=== PATIENT | female | born 1995 | race African-American/Black ===

== ENCOUNTER 2017-09-17 20:01 | Inpatient (IN) ==
[2017-09-17] MEDS ORDERED: MEPERIDINE 50 MG/1 ML VIAL IV PRN (20:44)
[2017-09-17] MEDS ORDERED: ONDANSETRON 4 MG/2 ML VIAL IV PRN (20:44)
[2017-09-17] MEDS: LACTATED RINGERS 1,000 ML IV SCH (20:50)
[2017-09-17 21:38] LABS: Basophils % 0.2 % (0.0-0.8); Eosinophils # 0.1 10*3/uL (0.0-0.87); Eosinophils % 0.5 % (0.00-10.9); Hematocrit 34.9 VOL% (35.7-47.0); Hemoglobin 11.5 GM/DL (12.0-16.0); Immature Granulocytes % 0.5 %; Immature Granulocytes Absolute 0.05 #; Lymphocytes # 2.7 10*3/uL (1.4-4.0); Lymphocytes % 24.1 % (21.3-54.2); Mean Corpuscular Hemoglobin 29 PG (27-34); Mean Corpuscular Volume 87.3 FL (87-102); Mean Platelet Volume 11.9 FL (9.6-12.0); Monocytes # 0.7 10*3/uL (0.11-0.8); Monocytes % 6.2 % (1.7-12.7); Neutrophils # 7.6 10*3/uL (1.4-7.4); Neutrophils % 68.5 % (38.7-73.9); Platelet Count 209 T/CUMM (130-400); Red Cell Distribution Width 13.3 % (9.3-17.3); White Blood Count 11.1 T/CUMM (4-12)
[2017-09-17] MEDS ORDERED: DINOPROSTONE 10 MG VAG.INSERT VAG ONE (22:00)
[2017-09-17 22:06] LABS: Alanine Aminotransferase 77 U/L (13-56); Albumin 2.7 G/DL (3.4-5.0); Alkaline Phosphatase 117 U/L (45-117); Aspartate Amino Transferase 61 U/L (0-37); Bilirubin,Total < 0.39 MG/DL (0.2-1.0); Blood Urea Nitrogen 9 MG/DL (7-18); Calcium 8.8 MG/DL (8.5-10.1); Glucose 79 MG/DL (74-106); Osmolality,Calculated 276.4 MOS/KG (273-304); Potassium 3.4 MMOL/L (3.5-5.1); Sodium 140 MMOL/L (136-145); Total Protein 6.3 G/DL (6.4-8.3)
[2017-09-18] MEDS ORDERED: OXYTOCIN/LR 20 UNIT/1,000 ML BAG IV ONE ×3 (04:45→16:48)
[2017-09-18] MEDS ORDERED: OXYTOCIN/LR 20 UNIT/1,000 ML BAG IV SCH (05:00)
[2017-09-18] MEDS: LACTATED RINGERS 1,000 ML IV SCH (06:20)
[2017-09-18] MEDS ORDERED: LACTATED RINGERS 1,000 ML IV ONE (09:47)
[2017-09-18] MEDS ORDERED: FAMOTIDINE 20 MG/2 ML VIAL IV ONE (09:47)
[2017-09-18] MEDS ORDERED: CITRIC ACID/SODIUM CITRATE 30 ML UDCUP PO ONE (09:47)
[2017-09-18] MEDS ORDERED: hydrOXYzine HCL 25 MG/1 ML VIAL IM PRN (09:48)
[2017-09-18] MEDS ORDERED: diphenhydrAMINE 50 MG/1 ML VIAL IV PRN ×2 (09:48)
[2017-09-18] MEDS ORDERED: ePHEDrine 50 MG/ML AMP IV PRN (09:48)
[2017-09-18] MEDS ORDERED: fentaNYL 2 MCG/ROPIV 0.2% EPID 150 ML EPIDURAL SCH (10:00)
[2017-09-18 13:02] LABS: Apearance,Urine CLEAR (Clear); Bilirubin,Urine Negative (Negative); Blood, Urine Negative (Negative); Glucose,Urine (UA) Negative (Negative); Ketones,Urine 80 mg/dL (Negative); Mucus,Urine Occasional /LPF (Occasional); Nitrite,Urine Negative (Negative); Protein,Urine Negative; RBC,Urine 1 /HPF (0-4); Squamous Epithelial Cell,Urine Occasional /HPF (0-10); Urine Color Yellow (Yellow); Urine Specific Gravity 1.011 (1.001-1.035); Urine Urobilinogen < 2.0 EU/DL (0.2-1.0); WBC,Urine 2 /HPF (0-6)
[2017-09-18] MEDS ORDERED: ACETAMINOPHEN 325 MG TABLET PO PRN (15:26)
[2017-09-18] MEDS ORDERED: BISACODYL 10 MG SUPP RECTAL PRN (15:26)
[2017-09-18] MEDS ORDERED: MAGNESIUM HYDROXIDE SUSP 30 ML UDCUP PO PRN (15:26)
[2017-09-18] MEDS ORDERED: LACTATED RINGERS 1,000 ML IV SCH (15:30)
[2017-09-18] MEDS: IBUPROFEN 800 MG TABLET PO PRN (15:34)
[2017-09-18] MEDS: DOCUSATE SODIUM 100 MG CAPSULE PO SCH (21:28)
[2017-09-19 06:15] LABS: Basophils % 0.2 % (0.0-0.8); Eosinophils # 0.1 10*3/uL (0.0-0.87); Eosinophils % 0.6 % (0.00-10.9); Hematocrit 27.8 VOL% (35.7-47.0); Immature Granulocytes % 0.6 %; Immature Granulocytes Absolute 0.08 #; Lymphocytes # 3.6 10*3/uL (1.4-4.0); Lymphocytes % 28.1 % (21.3-54.2); Mean Corpuscular HGB Conc 33.8 GM/DL (32-36); Mean Corpuscular Hemoglobin 29 PG (27-34); Mean Corpuscular Volume 85.5 FL (87-102); Mean Platelet Volume 12.2 FL (9.6-12.0); Monocytes # 0.8 10*3/uL (0.11-0.8); Monocytes % 5.8 % (1.7-12.7); NRBC # 0.02 10*3/uL; Neutrophils # 8.4 10*3/uL (1.4-7.4); Neutrophils % 64.7 % (38.7-73.9); Platelet Count 184 T/CUMM (130-400); Red Blood Count 3.25 MC/CUMM (3.8-5.5); Red Cell Distribution Width 13.2 % (9.3-17.3)
[2017-09-19 06:18] LABS: Hemoglobin 9.4 GM/DL (12.0-16.0)
[2017-09-19] MEDS: DOCUSATE SODIUM 100 MG CAPSULE PO SCH ×2 (09:23→22:12)
[2017-09-19] MEDS: MULTIVITAMIN (PRENATAL) TABLET PO SCH (09:23)
[2017-09-19] MEDS: IBUPROFEN 800 MG TABLET PO PRN (11:07)
[2017-09-19] MEDS: FERROUS SULFATE 325 MG TABLET PO SCH (22:12)
[2017-09-20] MEDS: IBUPROFEN 800 MG TABLET PO PRN (07:39)
[2017-09-20 07:42] VITALS: BP 141/84
[2017-09-20] MEDS: DOCUSATE SODIUM 100 MG CAPSULE PO SCH (08:11)
[2017-09-20] MEDS: MULTIVITAMIN (PRENATAL) TABLET PO SCH (08:11)
[2017-09-20] MEDS: FERROUS SULFATE 325 MG TABLET PO SCH (08:11)
== END 2017-09-20 12:20 | disposition home or self-care (01) | DRG 560 ==
LOC: N.LDOUT 20:01 → N.LD 20:06 → N.OB 09-18 14:18
PROVIDERS: ADMIT Nurse Practitioner; ATTEND Obstetrics & Gynecology

== ENCOUNTER 2021-06-15 17:30 | Inpatient (IN) ==
[2021-06-15] MEDS ORDERED: LACTATED RINGERS 1,000 ML IV ONE (18:29)
[2021-06-15] MEDS ORDERED: NIFEdipine 10 MG CAPSULE PO ONE ×2 (19:54→20:30)
[2021-06-15 20:38] LABS: Basophils % 0.1 % (0.0-0.8); Eosinophils % 0.3 % (0.00-10.9); Hematocrit 37.8 VOL% (35.7-47.0); Hemoglobin 12.4 GM/DL (12.0-16.0); Immature Granulocytes % 0.5 %; Immature Granulocytes Absolute 0.06 #; Lymphocytes # 2.3 10*3/uL (1.4-4.0); Lymphocytes % 19.5 % (21.3-54.2); Mean Corpuscular HGB Conc 32.8 GM/DL (32-36); Mean Corpuscular Volume 83.8 FL (87-102); Mean Platelet Volume 12.9 FL (9.6-12.0); Monocytes % 6.1 % (1.7-12.7); Neutrophils % 73.5 % (38.7-73.9); Platelet Count 149 T/CUMM (130-400); Red Blood Count 4.51 MC/CUMM (3.8-5.5); Red Cell Distribution Width 13.3 % (9.3-17.3); White Blood Count 11.9 T/CUMM (4-12)
[2021-06-15 20:55] LABS: Alanine Aminotransferase 40 U/L (13-56); Albumin 2.1 G/DL (3.4-5.0); Alkaline Phosphatase 158 U/L (45-117); Aspartate Amino Transferase 55 U/L (0-37); Bilirubin,Direct < 0.100 MG/DL (0.0-0.20); Blood Urea Nitrogen 7 MG/DL (7-18); Calcium 8.9 MG/DL (8.5-10.1); Carbon Dioxide 20 MMOL/L (21-32); Estimated Glom Filtration Rate 207 ML/MIN; Glucose 78 MG/DL (74-106); Osmolality,Calculated 273.5 MOS/KG (273-304); Potassium 3.8 MMOL/L (3.5-5.1); Sodium 139 MMOL/L (136-145); Total Protein 6.4 G/DL (6.4-8.2); Uric Acid 5.5 MG/DL (2.6-6.0)
[2021-06-15 21:37] LABS: INR 0.9; PT Patient Result 10.4 SECS (10.5-12.0); Partial Thromboplastin Time 32.4 SECS (23.8-32.1)
[2021-06-15] MEDS: ACETAMINOPHEN 325 MG TABLET PO PRN (23:00)
[2021-06-16 03:06] LABS: Protein/Creatinine Ratio,Urine 1.4 RATIO
[2021-06-16] MEDS ORDERED: LACTATED RINGERS 1,000 ML IV SCH (03:37)
[2021-06-16] MEDS: ACETAMINOPHEN 325 MG TABLET PO PRN ×3 (05:36→22:52)
[2021-06-16] MEDS: LABETALOL 200 MG TABLET PO SCH ×3 (06:52→21:14)
[2021-06-16] MEDS ORDERED: NIFEdipine 10 MG CAPSULE PO ONE (09:33)
[2021-06-16 21:54] LABS: Total Volume,Urine 2800 ML (400-2000)
[2021-06-16 22:07] LABS: Creatinine Clearance Urine 111.5 ML/MIN (70-115)
[2021-06-16 22:09] LABS: Total Protein 24 Hr Ur Result 3164 MG/24HR (0-149.1)
[2021-06-16] MEDS ORDERED: ONDANSETRON 4 MG/2 ML VIAL IV ONE (22:26)
[2021-06-16] MEDS ORDERED: MAGNESIUM SULF RIDER 4 GM/100 ML PREMIX IV ONE (22:42)
[2021-06-16] MEDS ORDERED: MAGNESIUM SULF DRIP 40 GM/1,000 ML ML IV SCH (23:00)
[2021-06-17] MEDS: ACETAMINOPHEN 325 MG TABLET PO PRN (04:33)
[2021-06-17] MEDS ORDERED: OXYTOCIN/LR 30 UNIT/1,000 ML BAG IV ONE (07:14)
[2021-06-17] MEDS ORDERED: OXYTOCIN 10 UNIT/ML VIAL IM ONE (07:14)
[2021-06-17] MEDS ORDERED: OXYTOCIN/LR 20 UNIT/1,000 ML BAG IV ONE ×2 (07:34→10:29)
[2021-06-17] MEDS ORDERED: CARBOPROST TROMETHAMINE 250 MCG/ML AMP IM ONE (07:34)
[2021-06-17] MEDS ORDERED: miSOPROStoL 200 MCG TABLET ONE (07:34)
[2021-06-17] MEDS ORDERED: SODIUM CHLORIDE 0.9% 0 ML IV ONE (07:34)
[2021-06-17] MEDS ORDERED: TRANEXAMIC ACID 1,000 MG/10 ML VIAL ONE (07:34)
[2021-06-17] MEDS ORDERED: METHYLERGONOVINE 0.2 MG/1 ML AMP ONE (07:34)
[2021-06-17] MEDS ORDERED: ceFAZolin 3,000 MG in SYRINGE 1 EACH IV ONE (08:00)
[2021-06-17] MEDS ORDERED: FAMOTIDINE 20 MG/2 ML VIAL IV ONE (08:00)
[2021-06-17] MEDS ORDERED: CITRIC ACID/SODIUM CITRATE 30 ML UDCUP PO ONE (08:00)
[2021-06-17] MEDS: LABETALOL 200 MG TABLET PO SCH (08:16)
[2021-06-17 08:47] LABS: Basophils % 0.1 % (0.0-0.8); Eosinophils # 0.1 10*3/uL (0.0-0.87); Eosinophils % 0.6 % (0.00-10.9); Hematocrit 38.4 VOL% (35.7-47.0); Hemoglobin 12.7 GM/DL (12.0-16.0); Immature Granulocytes % 0.4 %; Immature Granulocytes Absolute 0.04 #; Lymphocytes # 2.1 10*3/uL (1.4-4.0); Lymphocytes % 23.2 % (21.3-54.2); Mean Corpuscular HGB Conc 33.1 GM/DL (32-36); Mean Corpuscular Volume 84.2 FL (87-102); Mean Platelet Volume 12.3 FL (9.6-12.0); Monocytes % 5.4 % (1.7-12.7); Neutrophils % 70.3 % (38.7-73.9); Platelet Count 130 T/CUMM (130-400); Red Blood Count 4.56 MC/CUMM (3.8-5.5); Red Cell Distribution Width 13.7 % (9.3-17.3)
[2021-06-17] MEDS ORDERED: METOCLOPRAMIDE 10 MG/2 ML VIAL ONE (09:10)
[2021-06-17] MEDS ORDERED: ONDANSETRON 4 MG/2 ML VIAL ONE (09:10)
[2021-06-17] MEDS ORDERED: BUPIVACAINE SPINAL 0.75% 2 ML AMP SPINAL ONE (09:10)
[2021-06-17 09:16] LABS: INR 0.9; Partial Thromboplastin Time 34.5 SECS (23.8-32.1)
[2021-06-17] MEDS ORDERED: MIDAZOLAM 2 MG/2 ML VIAL ONE (09:22)
[2021-06-17] MEDS ORDERED: fentaNYL 250 MCG/5 ML VIAL ONE (09:56)
[2021-06-17] MEDS ORDERED: propofoL 200 MG/20 ML VIAL IV ONE (10:06)
[2021-06-17] MEDS ORDERED: ETOMIDATE 40 MG/20 ML VIAL IV ONE (10:06)
[2021-06-17] MEDS ORDERED: SUCCINYLCHOLINE 200 MG/10 ML VIAL ONE (10:06)
[2021-06-17 10:13] LABS: Cord Venous Blood HCO3 25.1 MMOL/L; Cord Venous Blood PO2 33.9 MMHG
[2021-06-17] MEDS ORDERED: LIDOCAINE 2% 5 ML VIAL ONE (10:16)
[2021-06-17] MEDS ORDERED: SUGAMMADEX 200 MG/2 ML VIAL IV ONE (10:20)
[2021-06-17] MEDS ORDERED: KETOROLAC 30 MG/1 ML VIAL ONE (10:20)
[2021-06-17 10:27] LABS: Bilirubin,Urine Negative (Negative); Blood, Urine Negative (Negative); Glucose,Urine (UA) Negative (Negative); Ketones,Urine 20 mg/dL (Negative); Mucus,Urine Occasional /LPF (Occasional); Nitrite,Urine Negative (Negative); Protein,Urine 100 MG/DL; RBC,Urine <1 /HPF (0-4); Squamous Epithelial Cell,Urine Occasional /HPF (0-10); Urine Appearance CLEAR (Clear); Urine Color Yellow (Yellow); Urine Specific Gravity 1.014 (1.001-1.035); Urine Urobilinogen < 2.0 EU/DL (<2.0)
[2021-06-17] MEDS ORDERED: ACETAMINOPHEN 325 MG TABLET PO PRN (10:29)
[2021-06-17] MEDS ORDERED: ONDANSETRON 4 MG/2 ML VIAL IV PRN (10:29)
[2021-06-17] MEDS ORDERED: RHO(D) IMMUNE GLOBULIN 300 MCG SYRINGE IM ONE (10:29)
[2021-06-17] MEDS ORDERED: LACTATED RINGERS 1,000 ML IV SCH (10:30)
[2021-06-17] MEDS ORDERED: FUROSEMIDE 20 MG/2 ML VIAL ONE (10:41)
[2021-06-17] MEDS ORDERED: SEVOFLURANE 1 UNIT/15 MINUTE INH ONE (10:41)
[2021-06-17] MEDS ORDERED: LABETALOL 20 MG/4 ML SYRINGE IV ONE (10:42)
[2021-06-17] MEDS: HYDROmorphone 2 MG/1 ML VIAL IV PRN ×2 (11:13→13:50)
[2021-06-17] MEDS: ACETAMINOPHEN 500 MG TABLET PO SCH ×2 (13:48→20:03)
[2021-06-17] MEDS: KETOROLAC 30 MG/1 ML VIAL IV SCH ×2 (16:46→22:16)
[2021-06-17] MEDS: FUROSEMIDE 40 MG/4 ML VIAL IV SCH ×2 (16:49→22:16)
[2021-06-17] MEDS: DOCUSATE SODIUM 100 MG CAPSULE PO SCH (21:55)
[2021-06-18] MEDS: ACETAMINOPHEN 500 MG TABLET PO SCH (01:58)
[2021-06-18] MEDS: KETOROLAC 30 MG/1 ML VIAL IV SCH (04:21)
[2021-06-18] MEDS: DOCUSATE SODIUM 100 MG CAPSULE PO SCH ×2 (08:12→20:29)
[2021-06-18] MEDS: MULTIVITAMIN (PRENATAL) TABLET PO SCH (08:12)
[2021-06-18 09:07] LABS: Basophils % 0.3 % (0.0-0.8); Eosinophils # 0.1 10*3/uL (0.0-0.87); Eosinophils % 1.1 % (0.00-10.9); Hematocrit 28.3 VOL% (35.7-47.0); Hemoglobin 9.2 GM/DL (12.0-16.0); Immature Granulocytes % 0.3 %; Immature Granulocytes Absolute 0.03 #; Lymphocytes # 2.5 10*3/uL (1.4-4.0); Lymphocytes % 25.6 % (21.3-54.2); Mean Corpuscular HGB Conc 32.5 GM/DL (32-36); Mean Corpuscular Volume 85.2 FL (87-102); Monocytes % 6.2 % (1.7-12.7); Neutrophils % 66.5 % (38.7-73.9); Platelet Count 156 T/CUMM (130-400); Red Blood Count 3.32 MC/CUMM (3.8-5.5); Red Cell Distribution Width 13.9 % (9.3-17.3); White Blood Count 9.9 T/CUMM (4-12)
[2021-06-18 09:34] LABS: Anisocytosis 1+; Hypochromia Slight; Platelet Estimate Adequate
[2021-06-18 09:35] LABS: Reactive Lymphocytes Few
[2021-06-18] MEDS: MAGNESIUM HYDROXIDE SUSP 30 ML UDCUP PO PRN (13:45)
[2021-06-18] MEDS: SIMETHICONE CHEW 80 MG TABLET PO PRN (13:45)
[2021-06-18] MEDS: IBUPROFEN 800 MG TABLET PO PRN (18:03)
[2021-06-18] MEDS: FERROUS SULFATE 325 MG TABLET PO SCH (20:29)
[2021-06-18] MEDS: METOCLOPRAMIDE 10 MG TABLET PO SCH (20:29)
[2021-06-19] MEDS ORDERED: PROMETHAZINE 25 MG/1 ML VIAL IM ONE ×2 (03:51→03:55)
[2021-06-19] MEDS ORDERED: MEPERIDINE 50 MG/1 ML VIAL IV ONE ×2 (03:51→04:00)
[2021-06-19] MEDS: IBUPROFEN 800 MG TABLET PO PRN (04:08)
[2021-06-19] MEDS ORDERED: MEPERIDINE 50 MG/1 ML VIAL IM ONE (04:30)
[2021-06-19] MEDS: METOCLOPRAMIDE 10 MG TABLET PO SCH ×3 (04:33→20:03)
[2021-06-19] MEDS ORDERED: MAGNESIUM CITRATE 300 ML BOTTLE PO ONE (07:23)
[2021-06-19] MEDS: FERROUS SULFATE 325 MG TABLET PO SCH ×2 (08:16→20:06)
[2021-06-19] MEDS: MAGNESIUM HYDROXIDE SUSP 30 ML UDCUP PO PRN (08:16)
[2021-06-19] MEDS: DOCUSATE SODIUM 100 MG CAPSULE PO SCH ×2 (08:16→20:03)
[2021-06-19] MEDS: MULTIVITAMIN (PRENATAL) TABLET PO SCH (08:16)
[2021-06-20] MEDS: IBUPROFEN 800 MG TABLET PO PRN (01:29)
[2021-06-20] MEDS: METOCLOPRAMIDE 10 MG TABLET PO SCH (03:55)
[2021-06-20 07:25] VITALS: BP 125/54
[2021-06-20] MEDS: MULTIVITAMIN (PRENATAL) TABLET PO SCH (09:36)
[2021-06-20] MEDS: SIMETHICONE CHEW 80 MG TABLET PO PRN (09:36)
[2021-06-20] MEDS: FERROUS SULFATE 325 MG TABLET PO SCH (09:36)
[2021-06-20] MEDS: DOCUSATE SODIUM 100 MG CAPSULE PO SCH (09:36)
[2021-06-20] MEDS ORDERED: DIPH/TET/ACEL PERT BOOSTER VACCINE 0.5 ML VIAL IM ONE (10:00)
[2021-06-20] MEDS ORDERED: INFLUENZA VIRUS VACCINE 0.5 ML SYRINGE IM ONE (10:00)
== END 2021-06-20 13:10 | disposition home or self-care (01) | DRG 540 ==
LOC: N.LDOUT 17:30 → N.LD 17:33 → N.OB 06-18 09:40
PROVIDERS: ADMIT Obstetrics & Gynecology; ATTEND Obstetrics & Gynecology
PROC: LDCSECT (ICD-10-PCS; 2021-06-17 09:00)